=== PATIENT | male | born 1940 | race Caucasian/White ===

== ENCOUNTER → 2016-04-30 | Outpatient (REF) ==
[~2016-04-30] MED LIST: ASPIRIN 81M81 MG/TA2 PO; COZAAR 25MG25 MG/TAB PO; FLOMAX 0.40.4 MG/CAP PO; GLUCOTROL10 MG PO; HYDRODIURIL50 MG PO; K-DUR20 MEQ PO; LANTUS SOLOS100 U/ML SQ; LIPITOR 40MG TA40 MG PO; NORCO 325 MG-51 TAB PO; NOVOLOG MIX 70/33 ML SQ; PROSCAR 5MG5 MG PO; TIROSINT75 MC1 PO; URECHOLINE 25MG25 MG PO
== END ==
LOC: ZLAB.WCH 14:58
DX: Z01.89 Encounter for other specified special examinations (principal)

== ENCOUNTER → 2016-07-26 | Outpatient (REF) | LOC: ZLAB.WCH 14:47 | DX: Z01.89 Encounter for other specified special examinations (principal) ==

== ENCOUNTER → 2016-10-24 | Outpatient (REF) | LOC: ZLAB.WCH 18:11 | DX: Z01.89 Encounter for other specified special examinations (principal) ==

== ENCOUNTER → 2016-10-25 | Outpatient (REF) | LOC: ZLAB.WCH 08:45 | DX: Z01.89 Encounter for other specified special examinations (principal) ==

== ENCOUNTER → 2016-11-26 | Outpatient (REF) | LOC: ZLAB.WCH 18:11 | DX: Z01.89 Encounter for other specified special examinations (principal) | CPT/HCPCS: G0103 ==

== ENCOUNTER 2016-12-05 08:58 | Day surgery (SDC) | payer MEDICARE, BC ==
[~2016-12-05] VITALS: Ht 175.3 cm; Wt 121.5 kg
[2016-12-05 10:14] VITALS: BP 127/60; PULSE 73; TEMP 97
[2016-12-05] MEDS ORDERED: ASPIRIN 81M81 MG/TA2 PO (10:24)
[2016-12-05] MEDS ORDERED: LIPITOR 40MG TA40 MG PO (10:25)
[2016-12-05] MEDS ORDERED: GLUCOTROL10 MG PO (10:28)
[2016-12-05] MEDS ORDERED: HYDRODIURIL50 MG PO (10:28)
[2016-12-05] MEDS ORDERED: PROSCAR 5MG5 MG PO (10:28)
[2016-12-05] MEDS ORDERED: NORCO 325 MG-51 TAB PO (10:29)
[2016-12-05] MEDS ORDERED: TIROSINT75 MC1 PO (10:30)
[2016-12-05] MEDS ORDERED: LANTUS SOLOS100 U/ML SQ (10:30)
[2016-12-05] MEDS ORDERED: NOVOLOG MIX 70/33 ML SQ ×2 (10:33→10:35)
[2016-12-05] MEDS ORDERED: COZAAR 25MG25 MG/TAB PO (10:33)
[2016-12-05] MEDS ORDERED: K-DUR20 MEQ PO (10:36)
[2016-12-05] MEDS ORDERED: FLOMAX 0.40.4 MG/CAP PO (10:36)
[2016-12-05] MEDS ORDERED: URECHOLINE 25MG25 MG PO (11:47)
== END 2016-12-05 12:30 | disposition home or self-care (01) ==
LOC: SDCO 08:58
DX: N39.41 Urge incontinence (principal); E78.00 Pure hypercholesterolemia, unspecified; E11.9 Type 2 diabetes mellitus without complications; I10 Essential (primary) hypertension; E03.9 Hypothyroidism, unspecified; F17.220 Nicotine dependence, chewing tobacco, uncomplicated; G47.00 Insomnia, unspecified; Z79.4 Long term (current) use of insulin; Z79.84 Long term (current) use of oral hypoglycemic drugs; Z85.828 Personal history of other malignant neoplasm of skin; Z83.3 Family history of diabetes mellitus; Z80.1 Family history of malignant neoplasm of trachea, bronchus and lung

== ENCOUNTER → 2017-02-06 | Outpatient (REF) ==
[2017-02-06 20:05] LABS: PSA-TOTAL 0.13 ng/mL (0-4); THYROID STIMULATING HORMONE 1.36 uIU/mL (0.465-4.680)
== END ==
LOC: ZLAB.WCH 19:15
PROVIDERS: Internal Medicine
DX: Z01.89 Encounter for other specified special examinations (principal)
CPT/HCPCS: G0103

== ENCOUNTER → 2017-05-14 | Outpatient (REF) | LOC: ZLAB.WCH 18:06 | DX: Z01.89 Encounter for other specified special examinations (principal) ==

== ENCOUNTER → 2017-09-13 | Outpatient (REF) | LOC: ZLAB.WCH 17:54 | DX: Z01.89 Encounter for other specified special examinations (principal) ==

== ENCOUNTER → 2018-03-27 | Outpatient (REF) | LOC: ZLAB.WCH 14:19 | DX: Z01.89 Encounter for other specified special examinations (principal) ==

== ENCOUNTER → 2018-07-17 | Outpatient (REF) | LOC: ZLAB.WCH 16:23 | DX: Z01.89 Encounter for other specified special examinations (principal) ==